=== PATIENT | female | born 1980 | race Caucasian/White ===

== ENCOUNTER 2016-10-28 18:22 | Emergency (ER) | payer OTHER ==
[~2016-10-28] VITALS: Ht 172.7 cm; Wt 128.2 kg
[~2016-10-28 18:22] MED LIST: CITALOPRAM HBR40 MG PO; FLEXERIL10 MG PO; GAS RELIEF 8080 MG PO; KLONOPIN0.5 M1 PO; LABETALOL HCL200 MG PO; LORTAB 5-325 M1 EACH PO; NAPROSYN500 MG PO; PERCOCET 5/31 TABLET PO
== END 2016-10-28 21:19 | disposition home or self-care (01) ==
LOC: EME 18:22
DX: S80.01XA Contusion of right knee, initial encounter (principal); W18.30XA Fall on same level, unspecified, initial encounter; Z91.81 History of falling; Z87.891 Personal history of nicotine dependence
CPT/HCPCS: 93971; 99281; 99283

== ENCOUNTER → 2017-05-12 | Outpatient (CLI) | payer OTHER ==
[~2017-05-12] VITALS: Ht 172.7 cm; Wt 128.8 kg
[~2017-05-12] MED LIST changes: +BUSPAR10 MG PO
== END | disposition home or self-care (01) ==
LOC: AMB 04-22 08:00
PROC: 0DBE8ZX Excision of Large Intestine, Via Natural or Artificial Opening Endoscopic, Diagnostic (ICD-10-PCS; principal; 2017-05-12)
DX: K62.5 Hemorrhage of anus and rectum (principal); E66.01 Morbid (severe) obesity due to excess calories; Z68.41 Body mass index [BMI] 40.0-44.9, adult; F41.9 Anxiety disorder, unspecified; D50.0 Iron deficiency anemia secondary to blood loss (chronic); Z95.0 Presence of cardiac pacemaker; Z87.891 Personal history of nicotine dependence
CPT/HCPCS: 88305; J2250